=== PATIENT | female | born 1995 | race Caucasian/White ===

== ENCOUNTER 2019-07-14 14:05 | Emergency (ER) | payer OTHER, SELFPAY ==
--- NOTE | ~2019-07-14 | XR_ITS ---
EXAMINATION: XR toe 1st LT min 2V INDICATION: Left first toe pain TECHNIQUE: Three views of the left first toe are obtained. COMPARISON: None available FINDINGS: No displaced fracture is identified. Bone alignment is normal. The joint spaces are unremar kable. The soft tissues are normal. IMPRESSION: 1. No acute osseous abnormality. Reviewed, dictated and finalized at location A.
--- NOTE | 2019-07-14 14:26 | ED.GENADULT ---
HPI - General Adult General Chief complaint: Extremity Injury, Lower Stated complaint: Fell left great toe/bilateral knee/lft thumb pain Time Seen by Provider: 07/14/19 14:26 Source: patient and RN notes reviewed Mode of arrival: ambulatory Limitations: no limitations History of Present Illness HPI narrative: 23-year-old female presents with left lateral great toe with swelling and pain for 1 day. Ariana says approximately between 06/28 this morning she was carrying her puppy and tripped over a baby gate and hit great toe on gate then on floor. She also hit other body parts on the floor but denies hitting head or loss of consciousness. Advil 400mg last this morning @ 09:00 with some relief. Hurts to bear weight. No radiation of pain. No numbness or tingling or loss of mobility. Denies inability to bear weight. 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 Relieving factor is rest. No fever or chills. No suspected foreign body. Denies headaches, weakness, fatigue, myalgia. Denies chest pain or dyspnea. Denies cough, rhinorrhea, congestion, sore throat, nausea, vomiting, abdominal pain, and diarrhea. Tolerating po intake well. Denies recent traveling. Denies concerns for COVID-19 or exposures been home since [id number] order except for essential household needs and returned home. Remains active. Complains of diffused LT lateral thumb pain for 1 day. Approximately 06/28 this morning fell and hit LT hand on floor. Advil 400mg last this morning @ 09:00 with some relief. Denies any numbness tingling. Exacerbating factors consist of moving LT thumb. RIGHT hand is dominant hand. Relieving factor is immobilization and rest. Denies any immobility. Denies altered sensation. Some parts of this dictation were generated by voice recognition software and may contain typographical and/or grammatical inaccuracies. Related Data Home Medications Medication Instructions Recorded Confirmed fluoxetine mg 07/14/19 topiramate 07/14/19 Allergies Allergy/AdvReac Type Severity Reaction Status Date / Time No Known Allergies Allergy Unverified 10/27/11 22:07 Review of Systems Review of Systems: Narrative: CONSTITUTIONAL: Denies fever, chills, sweats. EYES: Denies visual changes, redness, discharge. ENT: Denies rhinorrhea, congestion, sore throat, otalgia. CARDIOVASCULAR: Denies chest pain, palpitations, edema. RESPIRATORY: Denies dyspnea, wheezing, cough. GASTROINTESTINAL: Denies abdominal pain, nausea, vomiting, diarrhea. GENITOURINARY: Denies dysuria, hematuria, abnormal discharge. SKIN: Denies rash or itching. MUSCULOSKELETAL: Denies acute back pain or myalgia. Complains of LT lateral toe swelling and tenderness. LT thumb tenderness. NEUROLOGIC: Denies numbness or focal weakness. PSYCHIATRIC: Denies anxiety or depression. All systems reviewed & are unremarkable except as noted in HPI and below PMFSH Past Medical History Medical History (Updated 07/20/19 @ 19:30 by ALEKSEY Perez) Asthma Jeffry-Danlos syndrome Hx of migraines Surgical History Surgical History (Updated 07/14/19 @ 15:07 by ALEKSEY Perez) No significant past surgical history Family History Family History (Updated 07/14/19 @ 15:08 by ALEKSEY Perez) Mother Asthma Hypertension Sibling Asthma Grandparent Asthma Social History Social History (Updated 07/14/19 @ 15:08 by ALEKSEY Perez) Smoking status: Never smoker Second hand tobacco smoke exposure: No Alcohol intake: never Substance use: never Living arrangements: with family Occupation/Education: unemployed Gender identity (if verbalized by the patient): Female Comments At time of signature, agree with nurse past medical, surgical, social, and family history. There is no relevant family history pertinent to the presenting complaint. Exam Narrative: Exam Narrative: GENERAL: This is a well-nourished, well-developed patient
== END 2019-07-14 15:21 | disposition home or self-care (01) ==
PROVIDERS: Emergency Provider Nurse Practitioner Family; PCP Family Medicine
DX: S93.502A Unspecified sprain of left great toe, initial encounter (principal); S60.222A Contusion of left hand, initial encounter; J45.909 Unspecified asthma, uncomplicated; Q79.60 Ehlers-Danlos syndrome, unspecified; W18.09XA Striking against other object with subsequent fall, initial encounter
CPT/HCPCS: 73660; 99213; G0463